=== PATIENT | female | born 1965 | race Caucasian/White ===

== ENCOUNTER 2016-03-14 17:47 | Emergency (ER) | payer OTHER ==
[2016-03-14 18:20] VITALS: BP 155/89; PULSE 76; RESP 18; TEMP 98.4; O2SAT 96
[2016-03-14] MEDS ORDERED: IBUPROFEN 600 MG TAB PO ONE (19:49)
--- NOTE | 2016-03-14 19:57 | EDPHY ---
H & P Time Seen by Provider: 03/14/16 19:42 HPI/ROS: CHIEF COMPLAINT: Right ankle pain HISTORY OF PRESENT ILLNESS: 50-year-old female presents to the emergency department by private vehicle complaining of isolated pain to her right lower extremity. Patient fell on [facility] in front of the engineering building after she stepped into a cement possible. She complains of pain in her right ankle and right lower leg. She is unable to bear weight. She did not hit her head or lose consciousness. Denies any other trauma or injury. ROS: Denies numbness or tingling in her toes, pain in her right knee or right hip. She did not hit her head or lose consciousness. 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 No abrasion or puncture wound noted. Normal sensation to light touch with normal 2 point discrimination. Strong dorsalis pedis pulse on the dorsal aspect of the right foot. Tender to palpate along lateral malleolus of the right ankle. Also tender to palpate diffusely along the right fibula specially in the right mid fibular area. Nontender to palpate to the medial aspect. She is unable to dorsiflex or plantar flex against resistance secondary to pain. Gait is not tested due to pain. Constitutional: Initial Vital Signs Temperature (C) 36.9 C 03/14/16 18:18 Heart Rate 76 03/14/16 18:18 Respiratory Rate 18 03/14/16 18:18 Blood Pressure 155/89 H 03/14/16 18:18 O2 Sat (%) 96 03/14/16 18:18 O2 Delivery Mode Room Air Allergies/Adverse Reactions: Tricyclic Compounds Allergy (Verified 03/14/16 18:21) Home Medications: Medication Instructions Recorded Hydrocodone/APAP 5/325 [[place] 1 each PO Q4-6PRN PRN #15 tab 03/14/16 5/325 (*)] Prozac 10 MG (*) 03/14/16 MDM/Departure - MDM Diagnostics: X-rays of the right foot and ankle reveal no fractures. This is reviewed by myself the PAC system. Radiology interpretation to follow. Procedures: Stuart boot applied to the right ankle. This was examined post application in good placement with normal [employer]. Medications Given: Discontinued Medications Acetaminophen/Hydrocodone Bitart ([place] 5/325mg Prepack#6) 1 btl TAKEHOME EDNOW ONE Stop: 03/14/16 20:30 Last Admin: 03/14/16 20:37 Dose: 1 btl Ibuprofen (Motrin) 600 mg PO EDNOW ONE Stop: 03/14/16 19:50 Last Admin: 03/14/16 19:55 Dose: 600 mg ED Course/Re-evaluation: 50-year-old female presents to the emergency department with right lower extremity injury. X-rays reveal no fractures. She was placed in a Stuart boot and given crutches. She will weightbear as tolerated. She was given orthopedic referral follow-up in 1 week. - Depart Disposition: Home, Routine, Self-Care Clinical Impression: Right ankle sprain Qualifiers: Encounter type: initial encounter Involved ligament of ankle: unspecified ligament Qualifier Code: (S93.401A) Sprain of unspecified ligament of right ankle, initial encounter Condition: Good Instructions: Hydrocodone/Acetaminophen (By mouth), Ankle Sprain (ED) Additional Instructions: Stuart boot for comfort and support. Weightbear as tolerated. Ibuprofen 600 mg every 8 hours as needed for pain. Prescriptions: Hydrocodone/APAP 5/325 [[place] 5/325 (*)] 1 each PO Q4-6PRN PRN #15 tab PRN Reason: Pain, Severe Referrals: Dimitri Mcclelland MD [Medical Doctor] - 2-3 days without fail (Orthopedist on-call)
[2016-03-14] MEDS ORDERED: HYDROCOD/APAP 5/325 PREPACK#6 BTL TAKEHOME ONE (20:29)
--- NOTE | 2016-03-14 23:24 | DX ---
Right Tibia and Fibula, Two Views Indication: Right leg pain after fall. Findings: Soft tissues are normal. No degenerative changes. No fracture or dislocation. No perios teal reaction. Impression: Nothing acute in the tibia and fibula.
--- NOTE | 2016-03-15 08:49 | DX ---
Right Foot, Three Views Indication: Fifth metatarsal pain. Findings: No fracture or dislocation. There is moderate hallux valgus deformity of the first metatars ophalangeal joint. No periosteal reaction. Impression: Nothing acute radiographically.
--- NOTE | 2016-03-15 08:49 | DX ---
Right Ankle, Three Views Indication: Lateral ankle pain. Findings: There is moderate soft tissue swelling. No fracture or dislocation. No underlying bone lesi ons. Impression: Soft tissue swelling without fracture.
== END 2016-03-14 20:49 | disposition home or self-care (01) ==
DX: S93.401A Sprain of unspecified ligament of right ankle, initial encounter (principal); W19.XXXA Unspecified fall, initial encounter; Y92.214 College as the place of occurrence of the external cause
CPT/HCPCS: L4386

== ENCOUNTER 2017-01-04 12:52 | Emergency (ER) | payer OTHER ==
[2017-01-04 12:58] VITALS: BP 139/90; PULSE 86; RESP 16; TEMP 98.6; O2SAT 96
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
[2017-01-04] MEDS ORDERED: IBUPROFEN 600 MG TAB PO ONE ×2 (13:37→13:41)
== END 2017-01-04 14:05 | disposition home or self-care (01) ==
DX: S20.212A Contusion of left front wall of thorax, initial encounter (principal); S40.021A Contusion of right upper arm, initial encounter; V47.1XXA Car passenger injured in collision with fixed or stationary object in nontraffic accident, initial encounter; Y99.8 Other external cause status; Y93.89 Activity, other specified

== ENCOUNTER 2017-01-08 13:57 | Emergency (ER) | payer OTHER ==
[2017-01-08 14:07] VITALS: TEMP 98.1
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
[2017-01-08] MEDS ORDERED: NS 1,000 ML IV ONE (14:24)
--- NOTE | 2017-01-08 14:49 | CPEKG ---
Heart Rate: 70 RR Interval: 857 P-R Interval: 172 QRSD Interval: 86 QT Interval: 396 QTC Interval: 428 P [place]: 56 QRS [place]: 18 T Wave [place]: 13 EKG Severity - BORDERLINE ECG - EKG Impression: SINUS RHYTHM EKG Impression: BORDERLINE T ABNORMALITIES, ANTERIOR LEADS Electronically Signed By: Randi Taylor 08-Jan-2017 17:13:16
[2017-01-08 15:01] LABS: % IMMATURE GRANULYOCYTES 0.2 % (0.0-1.1); ABSOLUTE IMMATURE GRANULOCYTES 0.02 10^3/uL (0.00-0.10); ADD DIFF? NO; ADD MORPH? NO; ADD SCAN? NO; ATYPICAL LYMPHOCYTE FLAG 0 (0-99); FRAGMENT RBC FLAG 0 (0-99); HEMATOCRIT 40.9 % (38.0-47.0); LEFT SHIFT FLG 0 (0-99); LIPEMIA HEMOLYSIS FLAG 90 (0-99); MEAN CELL HEMOGLOBIN 30.9 pg (27.9-34.1); MEAN CELL HEMOGLOBIN CONCENTR. 34.2 g/dL (32.4-36.7); MEAN CELL VOLUME 90.3 fL (81.5-99.8); MEAN PLATELET VOLUME 9.4 fL (8.7-11.7); PLATELET CLUMPS FLAG 0 (0-99); PLATELET COUNT 327 10^3/uL (150-400); RED BLOOD CELL COUNT 4.53 10^6/uL (4.18-5.33); RED CELL DISTRIBUTION WIDTH 13.1 % (11.5-15.2)
[2017-01-08 15:39] LABS: ANION GAP 13 mEq/L (8-16); CARBON DIOXIDE 25 mEq/l (22-31); CHLORIDE 102 mEq/L (97-110); CREATININE 0.9 mg/dL (0.6-1.0); GLOMERULAR FILTRATION RATE > 60; GLUCOSE 86 mg/dL (70-100); SODIUM 140 mEq/L (134-144)
[2017-01-08 16:15] VITALS: BP 146/98; PULSE 77; RESP 16; O2SAT 96
== END 2017-01-08 16:15 | disposition home or self-care (01) ==
DX: R55 Syncope and collapse (principal); S20.219D Contusion of unspecified front wall of thorax, subsequent encounter; V89.2XXD Person injured in unspecified motor-vehicle accident, traffic, subsequent encounter